=== PATIENT | male | born 1995 | race Caucasian/White ===

== ENCOUNTER 2021-02-06 03:06 | Emergency (ER) | payer OTHER ==
[~2021-02-06] VITALS: Ht 205.7 cm; Wt 131.5 kg
[2021-02-06] MEDS ORDERED: AUGMENTIN 875-1 EACH PO (03:52)
[2021-02-06] MEDS ORDERED: PROAIR HFA8.5 GM INH (03:52)
[2021-02-06] MEDS ORDERED: HYDROCODONE-CH115 ML PO (03:52)
[2021-02-06 04:57] VITALS: BP 162/99
== END 2021-02-06 04:40 | disposition home or self-care (01) ==
LOC: M.ERS 03:06
DX: U07.1 COVID-19 (principal)